=== PATIENT | female | born 1945 | race Caucasian/White ===

== ENCOUNTER 2024-06-06 00:08 | Inpatient (IN) | payer OTHER ==
[~2024-06-06] VITALS: Ht 152.4 cm; Wt 87.9 kg
[2024-06-06 01:33] LABS: BASOPHILS % (AUTO) 0.6 % (0.0-2.0); EOSINOPHILS % (AUTO) 1.2 % (1.0-6.0); HEMATOCRIT 31.3 % (36-46); HEMOGLOBIN 10.3 g/dL (12.0-16.0); LYMPHOCYTES # (AUTO) 0.7 K/uL (1.0-4.8); LYMPHOCYTES % (AUTO) 8.4 % (22.0-44.0); MEAN CORPUSCULAR HEMOGLOBIN 29.2 pg (26.0-34.0); MEAN CORPUSCULAR HGB CONC 32.8 G/dL (31.0-37.0); MEAN CORPUSCULAR VOLUME 89 fL (80-100); MONOCYTES # (AUTO) 0.4 K/uL (0.1-1.0); MONOCYTES % (AUTO) 4.5 % (2.0-9.0); NEUTROPHILS # (AUTO) 6.7 K/uL (1.8-7.7); PLATELET COUNT (AUTO) 222 K/uL (150-450); RED BLOOD CELL COUNT(AUTO) 3.51 MIL/uL (4.00-5.20); RED CELL DISTRIBUTION WIDTH 14.5 % (11.5-14.5); WHITE BLOOD COUNT (AUTO) 7.9 K/uL (4.5-11.0)
[2024-06-06 01:34] LABS: NEUTROPHILS % (AUTO) 85.3 % (40.0-70.0)
[2024-06-06 01:45] LABS: CALCIUM, TOTAL 8.4 mg/dL (8.8-10.5); CREATININE 1.32 mg/dL (0.60-1.30); POTASSIUM 5.2 mmol/L (3.5-5.1)
[2024-06-06 02:00] LABS: TROPONIN I-HIGH SENSITIVITY 210 ng/L (<51)
[2024-06-06] MEDS ORDERED: CLOP75TA32 PO (02:19)
[2024-06-06] MEDS ORDERED: FURO-151 PO (02:19)
[2024-06-06] MEDS ORDERED: GABA-1216 PO (02:19)
[2024-06-06] MEDS ORDERED: LOSA50TA65 PO (02:19)
[2024-06-06] MEDS ORDERED: ATOR40TA71 PO (02:19)
[2024-06-06] MEDS ORDERED: CARV12.530 PO (02:20)
[2024-06-06 02:28] LABS: PROTHROMBIN TIME 12.4 SEC (9.4-11.6)
[2024-06-06] MEDS: FUROSEMIDE 20 MG/2 ML VIAL IVP ONE (03:16)
[2024-06-06] MEDS: ASPIRIN 325 MG TABLET PO ONE (03:16)
[2024-06-06 04:16] LABS: TROPONIN I-HIGH SENSITIVITY 206 ng/L (<51)
[2024-06-06] MEDS ORDERED: MAGNESIUM HYDROXIDE SUSPENSION 30 ML UDCUP PO PRN ×2 (06:00→17:15)
[2024-06-06] MEDS ORDERED: DEXTROSE 50%-WATER 25 GM/50 ML SYRINGE IVP PRN (06:00)
[2024-06-06] MEDS ORDERED: ACETAMINOPHEN 325 MG TABLET PO PRN ×2 (06:00→17:15)
[2024-06-06] MEDS ORDERED: MORPHINE SULFATE 2 MG/ML SYRINGE IVP PRN ×2 (06:00→17:15)
[2024-06-06] MEDS: HEPARIN SODIUM,PORCINE 5,000 UNITS/ML VIAL SQ SCH (08:01)
[2024-06-06] MEDS: FAMOTIDINE 20 MG TABLET PO SCH (08:01)
[2024-06-06] MEDS: DOCUSATE SODIUM 100 MG CAPSULE PO SCH (08:02)
[2024-06-06 08:13] LABS: COVID AG,FIA SOURCE NASAL SWAB
[2024-06-06 08:16] LABS: APPEARANCE,URINE CLEAR (CLEAR); BILIRUBIN,URINE NEGATIVE (NEGATIVE); COLOR,URINE COLORLESS (YELLOW); GLUCOSE, URINE (UA) 70-100 mg/dL (NEGATIVE); KETONES,URINE NEGATIVE (NEGATIVE); LEUKOCYTE ESTERASE ,URINE NEGATIVE (NEGATIVE); NITRATE,URINE POSITIVE (NEGATIVE); OCCULT BLOOD,URINE SMALL (NEGATIVE); PH,URINE 5.5 (5.0-8.0); PROTEIN,URINE 100-200,SEE CONFIRM mg/dL (NEGATIVE); SPECIFIC GRAVITIY, URINE 1.008 (1.003-1.030); UROBILINOGEN,URINE <=1.0 mg/dL (<=1.0)
[2024-06-06 08:24] LABS: BACTERIA,URINE Many /HPF (None Seen); SQUAMOUS EPITHELIAL CELL,UR Rare /LPF (None Seen); SULFOSALICYLIC ACID,URINE 2+ (Negative); WBC,URINE 0-2 /HPF (0-5)
[2024-06-06 08:36] LABS: INFLUENZA TYPE A NEGATIVE FOR TYPE A (NEGATIVE); INFLUENZA TYPE B NEGATIVE FOR TYPE B (NEGATIVE); SARS-COV2 (COVID) ANTIGEN,FIA Negative (Negative)
[2024-06-06] MEDS ORDERED: HEPARIN SODIUM,PORCINE 5,000 UNITS/ML VIAL IVP PRN ×2 (09:00)
[2024-06-06 09:47] LABS: BASOPHILS % (AUTO) 0.4 % (0.0-2.0); EOSINOPHILS % (AUTO) 1.2 % (1.0-6.0); HEMATOCRIT 31.5 % (36-46); HEMOGLOBIN 10.3 g/dL (12.0-16.0); LYMPHOCYTES # (AUTO) 0.8 K/uL (1.0-4.8); LYMPHOCYTES % (AUTO) 10.5 % (22.0-44.0); MEAN CORPUSCULAR HEMOGLOBIN 29.2 pg (26.0-34.0); MEAN CORPUSCULAR HGB CONC 32.6 G/dL (31.0-37.0); MEAN CORPUSCULAR VOLUME 90 fL (80-100); MONOCYTES # (AUTO) 0.4 K/uL (0.1-1.0); MONOCYTES % (AUTO) 5.3 % (2.0-9.0); NEUTROPHILS # (AUTO) 5.9 K/uL (1.8-7.7); NEUTROPHILS % (AUTO) 82.6 % (40.0-70.0); PLATELET COUNT (AUTO) 211 K/uL (150-450); RED BLOOD CELL COUNT(AUTO) 3.52 MIL/uL (4.00-5.20); RED CELL DISTRIBUTION WIDTH 14.3 % (11.5-14.5); WHITE BLOOD COUNT (AUTO) 7.2 K/uL (4.5-11.0)
[2024-06-06 10:11] VITALS: BP 161/99; PULSE 83; RESP 20; TEMP 98.6; O2SAT 98
[2024-06-06 10:11] LABS: PROTHROMBIN TIME 12.4 SEC (9.4-11.6)
[2024-06-06] MEDS: CARVEDILOL 12.5 MG TABLET PO SCH (10:54)
[2024-06-06] MEDS: NITROGLYCERIN 2% (1 GM=INCH) OINTMENT PACKET TP SCH (10:55)
[2024-06-06] MEDS: CLOPIDOGREL BISULFATE 75 MG TABLET PO SCH (10:55)
[2024-06-06] MEDS: ATORVASTATIN CALCIUM 40 MG TABLET PO SCH (10:56)
[2024-06-06 11:49] VITALS: BP 216/95; PULSE 84; RESP 20; TEMP 98.8; O2SAT 96
[2024-06-06] MEDS: HydrALAZINE HCL 20 MG/ML VIAL IVP PRN (11:55)
[2024-06-06] MEDS: INSULIN LISPRO 100 UNITS/ML SQ PRN (12:28)
[2024-06-06 13:09] VITALS: BP 140/80; PULSE 86; RESP 18; TEMP 98.6; O2SAT 98
[2024-06-06] MEDS ORDERED: HydrALAZINE HCL 20 MG/ML VIAL IVP PRN (14:15)
[2024-06-06 16:20] VITALS: BP 160/56; PULSE 75; RESP 18; TEMP 98.1; O2SAT 96
[2024-06-06] MEDS ORDERED: ONDANSETRON HCL 4 MG/2 ML VIAL IVP PRN (17:15)
[2024-06-06] MEDS ORDERED: BISACODYL 10 MG RECTAL RECTAL SUPPOSITORY PR PRN (17:15)
[2024-06-06] MEDS ORDERED: ALBUTEROL SULFATE 2.5 MG/0.5 ML NEB SOLUTION NEB PRN (17:15)
[2024-06-06] MEDS ORDERED: HYDROCODONE/ACETAMINOPHEN 5-325 MG TABLET PO PRN (17:15)
[2024-06-06] MEDS ORDERED: ZOLPIDEM TARTRATE 5 MG TABLET PO PRN (17:15)
[2024-06-06] MEDS ORDERED: IPRATROPIUM BROMIDE 0.5 MG/2.5 ML NEB SOLUTION NEB PRN (17:15)
[2024-06-06] MEDS: HEPARIN SODIUM 25000 UNITS/D5W 250 ML IV PRN (18:37)
[2024-06-06] MEDS: LOSARTAN POTASSIUM 50 MG TABLET PO ONE (18:40)
[2024-06-06 19:53] VITALS: BP 176/71; PULSE 81; RESP 22; TEMP 98.5; O2SAT 98
[2024-06-06] MEDS: AmLODIPine BESYLATE 5 MG TABLET PO SCH (20:26)
[2024-06-06] MEDS: FUROSEMIDE 20 MG/2 ML VIAL IVP SCH (20:32)
[2024-06-06 23:59] VITALS: BP 130/52; PULSE 71; RESP 20; TEMP 98.6; O2SAT 98
[2024-06-07] MEDS ORDERED: HEPARIN SODIUM,PORCINE 5,000 UNITS/ML VIAL SQ SCH
[2024-06-07 05:51] VITALS: BP 153/77; PULSE 77; RESP 20; TEMP 98.7; O2SAT 95
[2024-06-07 07:08] LABS: CALCIUM, TOTAL 7.8 mg/dL (8.8-10.5); CREATININE 1.27 mg/dL (0.60-1.30); POTASSIUM 3.7 mmol/L (3.5-5.1)
[2024-06-07 07:12] LABS: BASOPHILS % (AUTO) 0.2 % (0.0-2.0); EOSINOPHILS % (AUTO) 1.8 % (1.0-6.0); HEMOGLOBIN 9.1 g/dL (12.0-16.0); LYMPHOCYTES % (AUTO) 13.9 % (22.0-44.0); MEAN CORPUSCULAR HEMOGLOBIN 29.8 pg (26.0-34.0); MEAN CORPUSCULAR HGB CONC 33.5 G/dL (31.0-37.0); MEAN CORPUSCULAR VOLUME 89 fL (80-100); MONOCYTES # (AUTO) 0.5 K/uL (0.1-1.0); MONOCYTES % (AUTO) 7.3 % (2.0-9.0); NEUTROPHILS # (AUTO) 5.7 K/uL (1.8-7.7); NEUTROPHILS % (AUTO) 76.8 % (40.0-70.0); PLATELET COUNT (AUTO) 192 K/uL (150-450); RED BLOOD CELL COUNT(AUTO) 3.03 MIL/uL (4.00-5.20); RED CELL DISTRIBUTION WIDTH 14.4 % (11.5-14.5); WHITE BLOOD COUNT (AUTO) 7.4 K/uL (4.5-11.0)
[2024-06-07 07:42] LABS: TROPONIN I-HIGH SENSITIVITY 61 ng/L (<51)
[2024-06-07 07:44] VITALS: BP 155/60; PULSE 71; RESP 18; TEMP 98.2; O2SAT 97
[2024-06-07] MEDS: LOSARTAN POTASSIUM 50 MG TABLET PO SCH (08:51)
[2024-06-07] MEDS: PANTOPRAZOLE SODIUM 40 MG DR TABLET PO SCH (08:51)
[2024-06-07] MEDS: GABAPENTIN 100 MG CAPSULE PO SCH (08:52)
[2024-06-07] MEDS: ASPIRIN 81 MG DR TABLET PO SCH (08:53)
[2024-06-07 10:57] VITALS: BP 156/78; PULSE 85; RESP 19; TEMP 98; O2SAT 99
[2024-06-07] MEDS ORDERED: AZITHROMYCIN 500 MG/NS 250 ML IV SCH (11:15)
[2024-06-07] MEDS ORDERED: CefTRIAXone 1 GM/DEXTROSE 50 ML IV SCH (11:15)
[2024-06-07 23:47] LABS: GLUCOMETER DEV NAME(LOC) 5N.2C; GLUCOSE,POINT OF CARE 186 MG/DL (70-110)
[2024-06-07 23:47] LABS: GLUCOMETER DEV NAME(LOC) 5S.2D; GLUCOSE,POINT OF CARE 239 MG/DL (70-110)
[2024-06-07 23:47] LABS: GLUCOMETER DEV NAME(LOC) 5N.2C; GLUCOSE,POINT OF CARE 158 MG/DL (70-110)
[2024-06-07 23:47] LABS: GLUCOMETER DEV NAME(LOC) 5N.2C; GLUCOSE,POINT OF CARE 257 MG/DL (70-110)
[2024-06-07 23:47] LABS: GLUCOMETER DEV NAME(LOC) 5S.2D; GLUCOSE,POINT OF CARE 334 MG/DL (70-110)
== END 2024-06-07 12:25 | disposition left against medical advice (07) | DRG 469 ==
LOC: EMS 00:10 → EDH 07:27 → 5S 09:45
PROVIDERS: ADMIT Internal Medicine; ATTEND Internal Medicine
DX: N17.9 Acute kidney failure, unspecified (principal); J96.01 Acute respiratory failure with hypoxia; I50.33 Acute on chronic diastolic (congestive) heart failure; I13.0 Hypertensive heart and chronic kidney disease with heart failure and stage 1 through stage 4 chronic kidney disease, or unspecified chronic kidney disease; J18.9 Pneumonia, unspecified organism; E11.22 Type 2 diabetes mellitus with diabetic chronic kidney disease; Z20.822 Contact with and (suspected) exposure to COVID-19; N18.9 Chronic kidney disease, unspecified; I25.10 Atherosclerotic heart disease of native coronary artery without angina pectoris; I08.1 Rheumatic disorders of both mitral and tricuspid valves; N39.0 Urinary tract infection, site not specified; Z53.21 Procedure and treatment not carried out due to patient leaving prior to being seen by health care provider; Z95.1 Presence of aortocoronary bypass graft; Z79.899 Other long term (current) drug therapy
CPT/HCPCS: 71045; 71250; 80048; 81001; 81002; 82962; 83880; 84484; 85025; 85610; 85730; 87077; 87086; 87186; 87804; 93005; 93306; 93970; 99291; J0360; J0456; J0696; J1644; J1940; 36415-L1; 36415-TC